=== PATIENT | female | born 1965 | race African-American/Black ===

== ENCOUNTER 2019-11-23 21:31 | Emergency (ER) | payer MEDICAID ==
[~2019-11-23] VITALS: Ht 157.5 cm; Wt 97.0 kg
[2019-11-24] MEDS ORDERED: SODIUM CHLORIDE 0.9% 1,000 ML IV ONE (00:23)
[2019-11-24] MEDS ORDERED: FAMOTIDINE 20MG/2ML VIAL IV STA (00:23)
[2019-11-24 01:03] LABS: CLARITY URINE CLEAR (CLEAR); COLOR URINE YELLOW (YELLOW); KETONES URINE TRACE (NEGATIVE); LEUKOCYTE ESTERASE URINE TRACE (NEGATIVE); NITRITE URINE NEGATIVE (NEGATIVE); OCCULT BLOOD URINE TRACE (NEGATIVE); PROTEIN URINE TRACE (NEGATIVE); SPECIFIC GRAVITY URINE 1.027 (1.005-1.030)
[2019-11-24 01:10] LABS: CHLORIDE 108 mEq/L (98-107)
[2019-11-24 01:11] LABS: HEMATOCRIT. 37.1 % (36.0-48.0); HEMOGLOBIN. 11.6 g/dL (12.0-16.0); MEAN CORPUSCULAR VOLUME 63.7 fL (81.0-99.0); MEAN PLATELET VOLUME 8.5 fl (7.4-10.4); PLATELET 256 x1000/uL (130-400); RED BLOOD CELL COUNT 5.82 mill/uL (4.2-5.4); RED CELL DISTRIBUTION WIDTH 15.7 % (11.6-14.6)
[2019-11-24 02:15] LABS: PLATELET ESTIMATE NORMAL
[2019-11-24 03:11] VITALS: BP 149/87
== END 2019-11-24 01:00 | disposition left against medical advice (07) ==
LOC: ER 21:31
DX: B96.81 Helicobacter pylori [H. pylori] as the cause of diseases classified elsewhere (principal); Z90.49 Acquired absence of other specified parts of digestive tract; Z98.890 Other specified postprocedural states
CPT/HCPCS: 36415; 71045; 80053; 81003; 81025; 83690; 85025; 93005; 96361; 96374; 99285; J3490; J7030

== ENCOUNTER 2020-01-26 18:51 | Emergency (ER) | payer MEDICAID ==
[~2020-01-26] VITALS: Ht 165.1 cm; Wt 85.0 kg
[2020-01-26 18:53] VITALS: BP 195/92
[2020-01-26] MEDS ORDERED: FLUORESCEIN SODIUM 1MG/STRIP LEFTEYE ONE (20:00)
[2020-01-26] MEDS ORDERED: TETRACAINE 0.5% OPHTH DROPS 4ML LEFTEYE ONE (20:00)
[2020-01-26] MEDS ORDERED: CIPROFLOXACIN 0.3% OPHTH SOLN 2.5ML LEFTEYE ONE (21:00)
== END 2020-01-26 21:10 | disposition home or self-care (01) ==
LOC: ER 18:51
DX: H10.32 Unspecified acute conjunctivitis, left eye (principal); T85.398A Other mechanical complication of other ocular prosthetic devices, implants and grafts, initial encounter
CPT/HCPCS: 99283